=== PATIENT | female | born 1960 | race Caucasian/White ===

== ENCOUNTER 2018-01-13 21:00 | Emergency (ER) | payer MEDICAID ==
--- NOTE | 2018-01-13 21:38 | EDPHY ---
H & P Stated Complaint: Sore throat, "swollen lymph nodes", generalized weakness, PEREZ, sinus Time Seen by Provider: 01/13/18 21:19 HPI/ROS: CHIEF COMPLAINT: Sore throat sinus congestion HISTORY OF PRESENT ILLNESS: 57-year-old female arrives via ambulance from the [facility] complaining of sinus congestion, sore throat, adenopathy for the past 3 days. No headache. No change in voice. No fever or chills. No flu- like symptoms. No chest pain. No nuchal rigidity. No foreign body ingestion beyond food. Denies suicidal or homicidal ideation. Denies hallucination. Denies illicit drug or alcohol use. REVIEW OF SYSTEMS: A ten point review of systems was performed and is negative with the exception of the items mentioned in the HPI PAST MEDICAL & SURGICAL HISTORY: Prior history of psychosis. History of f bunionectomy SOCIAL HISTORY: Living at the [facility] PHYSICAL EXAM (Prior to examination, patient consented to physical exam, hands were washed and my usual and customary physical exam procedures followed) 1) GENERAL: Well-developed, well-nourished, alert and oriented. Sleeping, easily woken Appears to be in no acute distress. 2) HEAD: Normocephalic, atraumatic 3) HEENT: Pupils equal, round, reactive to light bilaterally. Sclera anicteric. Nasopharynx, oropharynx, clear, no lesions. Uvula midline. No tonsillar enlargement or exudate. No trismus no drooling. No hot potato voice. Ears bilaterally with normal tympanic membranes. 4) NECK: Full range of motion, no meningeal signs. Positive submandibular adenopathy which is tender. No other cervical adenopathy appreciated. 5) LUNGS: Clear auscultation bilaterally, no wheezes, no rhonchi, no retractions. 6) HEART: Regular rate and rhythm, no murmur, no heave, no gallop. 7) ABDOMEN: No guarding, no rebound, no focal tenderness, negative McBurney's, negative Gastelum's, negative Rovsing's, negative peritoneal sign, 8) MUSCULOSKELETAL: Moving all extremities, no focal areas of tenderness, no obvious trauma. No peripheral edema or discoloration. 9) BACK: No CVA tenderness, no midline vertebral tenderness, no fluctuance, no step-off, no obvious trauma, no visual or palpable abnormality. 10) SKIN: No rash, no petechiae. 11) Psychiatric: Patient is oriented X 3, there is no agitation. DIFFERENTIAL DIAGNOSIS: In no particular include but limited to strep pharyngitis, retropharyngeal abscess or phlegmon, peritonsillar abscess, epiglottitis, meningitis - Personal History Current Tetanus Diphtheria and Acellular Pertussis (TDAP): No - Medical/Surgical History Hx Asthma: No Hx Chronic Respiratory Disease: No Hx Diabetes: No Hx Cardiac Disease: No Hx Renal Disease: Yes Hx Cirrhosis: No Hx Alcoholism: No Hx HIV/AIDS: No Hx Splenectomy or Spleen Trauma: No - Social History Smoking Status: Current some day smoker Constitutional: Initial Vital Signs Temperature (C) 36.9 C 01/13/18 21:03 Heart Rate 101 H 01/13/18 21:03 Respiratory Rate 18 01/13/18 21:03 Blood Pressure 157/103 H 01/13/18 21:03 O2 Sat (%) 94 01/13/18 21:03 O2 Delivery Mode Room Air Allergies/Adverse Reactions: No Known Allergies Allergy (Unverified 01/13/18 21:03) Home Medications: Medication Instructions Recorded Azithromycin [Zithromax] 500 mg PO DAILY #1 tablet 01/13/18 Medical Decision Making ED Course/Re-evaluation: Doubt peritonsillar abscess, doubt retropharyngeal abscess or phlegmon. Doubt epiglottitis. Doubt meningitis. Will treat for acute sinusitis. She overall appears well. She is answering questions appropriately. She does have prior history of psychosis. Emergency department at this time she is answering questions appropriately denies hallucination denies suicidal or homicidal ideation. She does not meet criteria for an M1 hold. She feels comfortable being discharged. Usual and customary pharyngitis precautions and instructions provided. I saw this patient independently based on established practice protocols. Care of patient under supervision of secondary supervising physician Dr Suarez . - Data Points Laboratory Results: 01/13/18 01/13/18 01/13/18 Unknown 21:51 21:51 Monoscreen NEGATIVE (NEGATIVE) Group A Strep Screen NEGATIVE (NEGATIVE) Group A Strep DNA Pending Departure - Departure Disposition: Home, Routine, Self-Care Clinical Impression: Sinusitis Qualifiers: Sinusitis location: unspecified location Chronicity: acute Recurrence: not specified as recurrent Qualified Code(s): J01.90 - Acute sinusitis, unspecified Condition: Good Instructions: Sinusitis (ED) Additional Instructions: Return to the ER immediately if you cannot swallow, have drooling, fevers, neck stiffness, cannot open your jaw, or any other symptoms that concern you. Referrals: [facility],. [Clinic] - 2-3 days, call for appt. Prescriptions: Azithromycin [Zithromax] 500 mg PO DAILY #1 tablet
[2018-01-13 22:36] VITALS: BP 126/74
[2018-01-15 10:21] LABS: GROUP A STREP DNA (THROAT) POSITIVE (NEGATIVE)
== END 2018-01-13 22:36 | disposition home or self-care (01) ==
DX: J01.90 Acute sinusitis, unspecified (principal); F17.200 Nicotine dependence, unspecified, uncomplicated